=== PATIENT | male | born 1990 | race Asian ===

== ENCOUNTER 2018-09-01 02:49 | Emergency (ER) | payer OTHER ==
[~2018-09-01] VITALS: Ht 182.9 cm; Wt 80.7 kg
[2018-09-01 03:57] VITALS: BP 136/77; TEMP 97.9
== END 2018-09-01 08:07 | disposition home or self-care (01) ==
LOC: ED 02:49
DX: J02.9 Acute pharyngitis, unspecified (principal)
CPT/HCPCS: 87081; 87880; 96372; 99282; J0696

== ENCOUNTER 2020-03-29 19:34 | Emergency (ER) | payer OTHER ==
[~2020-03-29] VITALS: Ht 182.9 cm; Wt 81.6 kg
[2020-03-29 19:42] VITALS: TEMP 98.1
[2020-03-29 21:10] LABS: POTASSIUM 3.8 mmol/L (3.6-5.2)
[2020-03-29 21:17] LABS: PLATELET COUNT 207 K/uL (142-355)
[2020-03-29 21:50] VITALS: BP 116/67
== END 2020-03-29 21:52 | disposition home or self-care (01) ==
LOC: ED 19:34
PROVIDERS: Family Medicine
DX: R53.83 Other fatigue (principal); M62.838 Other muscle spasm
CPT/HCPCS: 80053; 81000; 85027; 87502; 87651; 99283

== ENCOUNTER 2021-12-01 21:59 | Emergency (ER) | payer OTHER ==
[~2021-12-01] VITALS: Ht 182.9 cm; Wt 81.6 kg
[2021-12-01 23:20] VITALS: BP 117/72; TEMP 98.2
== END 2021-12-01 23:20 | disposition home or self-care (01) ==
LOC: ED 21:59
DX: S93.491A Sprain of other ligament of right ankle, initial encounter (principal); S93.691A Other sprain of right foot, initial encounter; X50.9XXA Other and unspecified overexertion or strenuous movements or postures, initial encounter; Y93.67 Activity, basketball; Y92.89 Other specified places as the place of occurrence of the external cause
CPT/HCPCS: 96372; 99283; J1885

== ENCOUNTER 2022-02-19 17:35 | Emergency (ER) | payer OTHER ==
[~2022-02-19] VITALS: Ht 182.9 cm; Wt 81.6 kg
[2022-02-19 18:39] LABS: PLATELET COUNT 243 K/uL (142-355)
[2022-02-19 18:48] LABS: POTASSIUM 3.9 mmol/L (3.6-5.2)
[2022-02-19 18:55] VITALS: BP 116/81; TEMP 98.1
== END 2022-02-19 19:00 | disposition home or self-care (01) ==
LOC: ED 17:35
PROVIDERS: Hospitalist
DX: R25.2 Cramp and spasm (principal)
CPT/HCPCS: 36415; 80048; 83735; 85027; 99283

== ENCOUNTER 2022-06-23 10:21 | Emergency (ER) | payer OTHER ==
[~2022-06-23] VITALS: Ht 182.9 cm; Wt 81.6 kg
[2022-06-23 10:25] VITALS: TEMP 97
[2022-06-23 11:12] VITALS: BP 136/77
== END 2022-06-23 11:12 | disposition home or self-care (01) ==
LOC: ED 10:21
DX: J06.9 Acute upper respiratory infection, unspecified (principal); U07.1 COVID-19; F17.290 Nicotine dependence, other tobacco product, uncomplicated
CPT/HCPCS: 87502; 87635; 87651; 99283; U0003

== ENCOUNTER 2023-01-13 22:13 | Emergency (ER) | payer OTHER ==
[~2023-01-13] VITALS: Ht 182.9 cm; Wt 81.6 kg
[2023-01-13 22:15] VITALS: TEMP 98.8
[2023-01-13 22:45] VITALS: BP 130/82
== END 2023-01-13 22:45 | disposition home or self-care (01) ==
LOC: ED 22:13
DX: F41.8 Other specified anxiety disorders (principal)
CPT/HCPCS: 99283